=== PATIENT | female | born 1990 | race Hispanic/Latino ===

== ENCOUNTER 2023-01-12 13:21 | Inpatient (IN) | payer OTHER ==
[2023-01-12] VITALS (31 sets, daily range): BP systolic 94–119; BP diastolic 47–74; PULSE 63–101; RESP 11–20; O2SAT 100
[~2023-01-12] VITALS: Ht 154.9 cm; Wt 63.5 kg
[2023-01-12 13:57] LABS: BASOPHILS # (AUTO) 0.08 K/uL (0.00-0.20); BASOPHILS % (AUTO) 0.4 % (0.0-5.0); EOSINOPHILS # (AUTO) 0.16 K/uL (0.00-0.70); EOSINOPHILS % (AUTO) 0.9 % (0.0-8.0); HEMATOCRIT 21.8 % (36-48); IMMATURE GRANULOCYTE ABSOLUTE 0.13 K/uL (0-1); LYMPHOCYTES # (AUTO) 2.7 K/uL (1.0-4.8); LYMPHOCYTES % (AUTO) 14.9 % (21.0-51.0); MEAN CORPUSCULAR HEMOGLOBIN 28.9 pg (27.0-33.0); MEAN CORPUSCULAR VOLUME 87.6 fL (79-99); MONOCYTES # (AUTO) 0.8 K/uL (0.1-1.0); MONOCYTES % (AUTO) 4.5 % (3.0-13.0); NEUTROPHILS # (AUTO) 14.4 K/uL (1.8-7.7); NEUTROPHILS % (AUTO) 78.6 % (40.0-77.0); PLATELET COUNT (AUTO) 328 K/uL (130-400); RED BLOOD CELL COUNT(AUTO) 2.49 MIL/uL (4.00-5.50); RED CELL DISTRIBUTION WIDTH 14.1 % (11.0-15.5); WHITE BLOOD COUNT (AUTO) 18.3 K/uL (4.8-10.8)
[2023-01-12] MEDS ORDERED: LACTATED RINGERS 1000ML 1,000 ML IV ONE ×2 (14:00→15:08)
[2023-01-12 14:06] LABS: CREATININE 1.1 mg/dL (0.5-1.5); POTASSIUM 3.2 mmol/L (3.5-5.1)
[2023-01-12 14:32] LABS: ALBUMIN 2.9 g/dL (3.5-5.0); BILIRUBIN,TOTAL 0.4 mg/dL (0.2-1.0); TOTAL PROTEIN, SERUM 5.8 g/dL (6.0-8.3)
[2023-01-12] MEDS ORDERED: SUCCINYLCHOLINE CHLORIDE 20 MG/ML 10 ML VIAL ONE (14:53)
[2023-01-12] MEDS ORDERED: DEXAMETHASONE SOD PHOSPHATE 10MG/ML 1ML VIAL ONE (14:53)
[2023-01-12] MEDS ORDERED: NEOSTIGMINE 5MG/5ML SYR IV ONE (14:54)
[2023-01-12] MEDS ORDERED: LIDOCAINE PF 100MG/5ML (2%) SYRINGE 5ML ONE (14:54)
[2023-01-12] MEDS ORDERED: GLYCOPYRROLATE 1 MG/5 ML SYRINGE ONE (14:54)
[2023-01-12] MEDS ORDERED: ONDANSETRON 4MG INJ ONE (14:54)
[2023-01-12] MEDS ORDERED: PROPOFOL 10 MG/ML 20ML VIAL IV ONE (14:54)
[2023-01-12] MEDS ORDERED: MIDAZOLAM HCL 1 MG/ML 2ML VIAL ONE (14:54)
[2023-01-12] MEDS ORDERED: ROCURONIUM 10MG/1ML SYR 10 MG/ML ML ONE (14:55)
[2023-01-12] MEDS ORDERED: FENTANYL CITRATE PF 50 MCG/1 ML 2ML VIAL ONE (14:55)
[2023-01-12] MEDS ORDERED: CEFAZOLIN SODIUM 2 GM VIAL IVPB ONE (15:00)
[2023-01-12] MEDS ORDERED: KETAMINE 50MG/ML SYRINGE 50 MG/ML DISP.SYRIN ONE (15:14)
[2023-01-12 15:37] LABS: ABG BASE EXCESS -10.9 mmol/L (-2.0-3.0); ABG HCO3 16.4 mmol/L (21.0-28.0); ABG OXYGEN SATURATION 99.2 % (95.0-99.0); ABG PCO2 44 mmHg (32-45); ABG PH 7.195 (7.350-7.450); CARBON MONOXIDE 0.5; DEVICE COMMENT RR OR; HHb 0.8; PO2, ARTERIAL BG 440.1 mmHg (83.0-108.0)
[2023-01-12] MEDS ORDERED: SODIUM BICARB 50MEQ 50ML VIAL 50 ML ONE (15:40)
[2023-01-12] MEDS ORDERED: CEFAZOLIN SODIUM 2 GM VIAL ONE (15:47)
[2023-01-12] MEDS ORDERED: SODIUM BICARB 50MEQ 50ML VIAL 150 ML ONE (15:51)
[2023-01-12] MEDS ORDERED: MEPERIDINE-PF 25 MG/ML SYG ONE (16:16)
[2023-01-12] MEDS ORDERED: MEPERIDINE-PF 50 MG/ML SYG ONE (16:33)
[2023-01-12] MEDS ORDERED: ONDANSETRON 4MG INJ IVP PRN (18:00)
[2023-01-12] MEDS ORDERED: ACETAMINOPHEN WITH CODEINE 1 TAB TAB PO PRN (18:00)
[2023-01-12] MEDS ORDERED: IBUPROFEN 600 MG TABLET PO PRN (18:00)
[2023-01-12] MEDS ORDERED: PROMETHAZINE HCL 25 MG/ML 1ML AMPULE IM PRN (18:00)
[2023-01-12] MEDS ORDERED: BISACODYL 10 MG SUPP.RECT RC PRN (18:00)
[2023-01-12] MEDS: MEPERIDINE-PF 75 MG/ML SYG IM PRN ×2 (18:21→23:14)
[2023-01-12] MEDS: PROMETHAZINE HCL 25 MG/ML 1ML AMPULE IM PRN ×2 (18:21→23:14)
[2023-01-12] MEDS: DEXTROSE 5 %-0.45 % NACL 1,000 ML IV PRN (20:03)
[2023-01-12 20:07] LABS: HEMATOCRIT 26.8 % (36-48)
[2023-01-13] VITALS (12 sets, daily range): BP systolic 109–141; BP diastolic 57–86; PULSE 80–126; RESP 18–20
[2023-01-13] MEDS ORDERED: HYDROCODONE/ACETAMINOPHEN 5/325 MG TAB PO PRN (04:00)
[2023-01-13] MEDS: DEXTROSE 5 %-0.45 % NACL 1,000 ML IV PRN (04:23)
[2023-01-13 06:32] LABS: MEAN CORPUSCULAR HEMOGLOBIN 28.9 pg (27.0-33.0); MEAN CORPUSCULAR HGB CONC 34.5 g/dL (32.0-36.0); MEAN CORPUSCULAR VOLUME 83.9 fL (79-99); RED BLOOD CELL COUNT(AUTO) 2.42 MIL/uL (4.00-5.50); RED CELL DISTRIBUTION WIDTH 15.8 % (11.0-15.5); WHITE BLOOD COUNT (AUTO) 9.7 K/uL (4.8-10.8)
[2023-01-13 06:35] LABS: HEMATOCRIT 20.3 % (36-48)
[2023-01-13] MEDS: ACETAMINOPHEN WITH CODEINE 1 TAB TAB PO PRN ×3 (06:43→18:15)
[2023-01-13] MEDS: SIMETHICONE 80 MG TAB.CHEW PO PRN ×2 (10:57→21:48)
[2023-01-13] MEDS: DOCUSATE SODIUM 100 MG CAP PO PRN ×2 (10:57→21:48)
[2023-01-13] MEDS: IBUPROFEN 800 MG TAB PO PRN ×2 (15:45→21:48)
[2023-01-14 01:00] VITALS: PULSE 96
[2023-01-14 04:00] VITALS: BP 99/51; PULSE 90; RESP 18
[2023-01-14] MEDS: ACETAMINOPHEN WITH CODEINE 1 TAB TAB PO PRN (05:46)
[2023-01-14 06:41] LABS: BASOPHILS # (AUTO) 0.03 K/uL (0.00-0.20); BASOPHILS % (AUTO) 0.6 % (0.0-5.0); EOSINOPHILS # (AUTO) 0.18 K/uL (0.00-0.70); EOSINOPHILS % (AUTO) 3.6 % (0.0-8.0); HEMATOCRIT 26.6 % (36-48); IMMATURE GRANULOCYTE ABSOLUTE 0.02 K/uL (0-1); LYMPHOCYTES % (AUTO) 20.2 % (21.0-51.0); MEAN CORPUSCULAR HEMOGLOBIN 28.3 pg (27.0-33.0); MEAN CORPUSCULAR HGB CONC 34.2 g/dL (32.0-36.0); MEAN CORPUSCULAR VOLUME 82.6 fL (79-99); MONOCYTES # (AUTO) 0.5 K/uL (0.1-1.0); MONOCYTES % (AUTO) 9.9 % (3.0-13.0); NEUTROPHILS # (AUTO) 3.2 K/uL (1.8-7.7); NEUTROPHILS % (AUTO) 65.3 % (40.0-77.0); PLATELET COUNT (AUTO) 104 K/uL (130-400); RED BLOOD CELL COUNT(AUTO) 3.22 MIL/uL (4.00-5.50); RED CELL DISTRIBUTION WIDTH 17.1 % (11.0-15.5); WHITE BLOOD COUNT (AUTO) 4.9 K/uL (4.8-10.8)
[2023-01-14 07:33] VITALS: BP 113/57; PULSE 104; RESP 18
[2023-01-14] MEDS: DOCUSATE SODIUM 100 MG CAP PO PRN (09:06)
[2023-01-14 11:39] VITALS: BP 116/58; PULSE 131; RESP 18
[2023-01-14] MEDS: ZOSYN 3.375GM +NS 50ML IV SCH ×2 (12:46→20:16)
[2023-01-14] MEDS: ACETAMINOPHEN 325 MG TAB PO PRN (12:46)
[2023-01-14 12:56] LABS: HEMATOCRIT 27.7 % (36-48); MEAN CORPUSCULAR HEMOGLOBIN 28.6 pg (27.0-33.0); MEAN CORPUSCULAR HGB CONC 34.3 g/dL (32.0-36.0); MEAN CORPUSCULAR VOLUME 83.4 fL (79-99); RED BLOOD CELL COUNT(AUTO) 3.32 MIL/uL (4.00-5.50); RED CELL DISTRIBUTION WIDTH 16.9 % (11.0-15.5)
[2023-01-14 16:12] VITALS: BP 123/68; PULSE 103; RESP 17
[2023-01-14 19:45] VITALS: BP 115/68; PULSE 101; RESP 18
[2023-01-15 00:05] VITALS: BP 119/73; PULSE 79; RESP 18
[2023-01-15] MEDS: ACETAMINOPHEN 325 MG TAB PO PRN (00:11)
[2023-01-15 01:11] VITALS: TEMP 99.1
[2023-01-15 04:00] VITALS: BP 111/65; PULSE 76; RESP 18
[2023-01-15] MEDS: ZOSYN 3.375GM +NS 50ML IV SCH ×2 (04:18→13:20)
[2023-01-15 07:59] VITALS: BP 102/68; PULSE 88; RESP 16
[2023-01-15] MEDS: ACETAMINOPHEN WITH CODEINE 1 TAB TAB PO PRN (10:42)
[2023-01-15 12:37] VITALS: BP 108/66; PULSE 86; RESP 16
[2023-01-15] MEDS ORDERED: ACET-2079 PO (15:44)
[2023-01-15] MEDS ORDERED: FERR-82 PO (15:47)
[2023-01-15] MEDS ORDERED: CELECOXIB 200 MG CAP PO SCH (17:00)
== END 2023-01-15 16:20 | disposition home or self-care (01) | DRG 817 ==
LOC: EDH 13:21 → EDBD 13:21 → WSH 13:22
PROVIDERS: ADMIT Obstetrics & Gynecology; ATTEND Obstetrics & Gynecology
PROC: 0UC90ZZ Extirpation of Matter from Uterus, Open Approach (ICD-10-PCS; 2023-01-12)
PROC: 30233N1 Transfusion of Nonautologous Red Blood Cells into Peripheral Vein, Percutaneous Approach (ICD-10-PCS; 2023-01-12)
PROC: 10T20ZZ Resection of Products of Conception, Ectopic, Open Approach (ICD-10-PCS; principal; 2023-01-12 15:15)
DX: O00.90 Unspecified ectopic pregnancy without intrauterine pregnancy (principal); K66.1 Hemoperitoneum; Z3A.09 9 weeks gestation of pregnancy
CPT/HCPCS: 36415; 36600; 76801; 80053; 82435; 82803; 82947; 83605; 84132; 84295; 84702; 84703; 85014; 85018; 85025; 85027; 86850; 86900; 86901; 86922; 86923; 87040; A4344; G0378; J0330; J1100; J2001; J2175; J2250; J2405; J2543; J2550; J2704; J2710; J3010; J3490; J7120; P9016; A4452; A4930; J0690; L0625